=== PATIENT | male | born 1955 | race Caucasian/White ===

== ENCOUNTER 2021-07-25 20:47 | Inpatient (IN) | payer MEDICARE, OTHER ==
[~2021-07-25] VITALS: Ht 167.6 cm; Wt 106.6 kg
[~2021-07-25 20:47] MED LIST: AMIN30LI2 PO; AMLO-213 PO; ATEN25TA PO; ATOR20TA PO; DOXY-326 PO; ESOM40CA PO; GABA-536 PO; LIDO30CR TP; MOME13HF2 IH; NAPR-1009 PO; OMEG500C3 PO; PRED20TA PO; SERT25TA PO; SOLI5TAB2 PO; TEMA15CA PO; TIOT18CA3 IH; ZOLP5TAB2 PO
--- NOTE | 2021-07-25 21:01 | NUR ---
PT AAOX4. BIBRA 60 FROM HOME FOR C/O UPPER ABD PAIN , -N/V, - CP. PLACED IN BED 10 ON RETAIL SALESPERSON AND PULSE OX. AWAITING ER MD FOR EVAL.
--- NOTE | 2021-07-25 21:10 | NUR ---
URINE COLLECTED, SENT TO LAB.
--- NOTE | 2021-07-25 21:28 | NUR ---
IV ESTABLISHED, BLOOD COLLECTED, SENT TO LAB.
--- NOTE | 2021-07-25 21:30 | NUR ---
US AT BEDSIDE
[2021-07-25 21:34] LABS: BILIRUBIN,URINE Negative (NEGATIVE); COLOR,URINE YELLOW (YELLOW); LEUKOCYTE ESTERASE ,URINE Negative (NEGATIVE); NITRITE, URINE Negative (NEGATIVE); PH,URINE 6.5 (5.0-8.0); PROTEIN,URINE >=300 mg/dl (NEGATIVE); UGLUCOSE Negative (NEGATIVE); UROBILINOGEN,URINE 0.2 EU/dL (0.2)
[2021-07-25 21:49] LABS: BACTERIA,URINE Few /HPF (None Seen); SQUAMOUS EPITHELIAL CELL,UR Few /HPF (None Seen); WBC,URINE 0-2 /HPF (0-3)
[2021-07-25 21:53] LABS: BASOPHILS % (AUTO) 0.6 % (0.0-2.0); EOSINOPHILS % (AUTO) 2.1 % (0.0-6.0); HEMATOCRIT 41 % (39-51); HEMOGLOBIN 13.6 g/dL (13.5-17.5); LYMPHOCYTES # (AUTO) 1.7 K/uL (0.8-4.8); LYMPHOCYTES % (AUTO) 27.1 % (20.0-44.0); MEAN CORPUSCULAR HGB CONC 33 g/dl (31.0-36.0); MEAN CORPUSCULAR VOLUME 87 fL (80-96); MONOCYTES # (AUTO) 0.5 K/uL (0.1-1.30); MONOCYTES % (AUTO) 7.5 % (2.0-12.0); NEUTROPHILS # (AUTO) 3.8 K/uL (1.8-8.9); NEUTROPHILS % (AUTO) 62.7 % (43.0-81.0); PLATELET COUNT (AUTO) 148 K/uL (150-450); RED BLOOD CELL COUNT(AUTO) 4.77 MIL/uL (4.5-6.0); WHITE BLOOD COUNT (AUTO) 6.1 K/uL (4.3-11.0)
--- NOTE | 2021-07-25 22:06 | NUR ---
COVID SWAB COLLECTED VIA RECORDS SUPERVISOR AND SENT TO LAB
[2021-07-25] MEDS ORDERED: MORPHINE SULFATE INJ 4 MG/ML DISP.SYRIN ONE (22:07)
[2021-07-25] MEDS ORDERED: ONDANSETRON HCL/PF 4 MG/2 ML VIAL ONE (22:07)
[2021-07-25 22:15] LABS: CALCIUM, SERUM 8.9 mg/dL (8.5-10.1); CARBON DIOXIDE 25 mmol/L (21-32); CHLORIDE 105 mmol/L (98-107); CREATININE 0.7 mg/dL (0.6-1.3); GLUCOSE 165 mg/dL (74-106); POTASSIUM 4.2 mmol/L (3.5-5.1); SODIUM SERUM 140 mmol/L (136-145); UREA NITROGEN, BLOOD 11 mg/dL (7-18)
[2021-07-25 22:20] LABS: ALANINE AMINOTRANSFERASE 74 U/L (12-78); ALBUMIN 3.8 g/dL (3.4-5.0); ALKALINE PHOSPHATASE 52 U/L (46-116); ASPARTATE AMINOTRANSFERASE 22 U/L (15-37); BILIRUBIN,DIRECT 0.1 mg/dL (0.0-0.2); BILIRUBIN,TOTAL 0.3 mg/dL (0.2-1.0); LIPASE 81 U/L (73-393)
[2021-07-25] MEDS ORDERED: MORPHINE SULFATE INJ 2 MG/ML DISP.SYRIN IV PRN (22:30)
[2021-07-25] MEDS ORDERED: DEXTROSE 50%-WATER 50 ML DISP.SYRIN IV PRN (22:30)
[2021-07-25] MEDS ORDERED: ONDANSETRON HCL/PF 4 MG/2 ML VIAL IVP PRN (22:30)
[2021-07-25] MEDS ORDERED: ACETAMINOPHEN 325 MG TABLET PO PRN (22:30)
[2021-07-25] MEDS ORDERED: MAG HYDROX/AL HYDROX/SIMETH 30 ML UDC PO PRN (22:30)
[2021-07-25] MEDS ORDERED: Z GUARD REMEDY 2 OZ OINT TP PRN (22:30)
[2021-07-25] MEDS ORDERED: ONDANSETRON HCL/PF 4 MG/2 ML VIAL IV ONE (22:30)
[2021-07-25] MEDS ORDERED: MAGNESIUM HYDROXIDE 30 ML UDC PO PRN (22:30)
[2021-07-25] MEDS ORDERED: MORPHINE SULFATE INJ 2 MG/ML DISP.SYRIN IV ONE ×2 (22:30→23:00)
[2021-07-25] MEDS ORDERED: HYDROMORPHONE 1 MG/1 ML DISP.SYRIN ONE (22:45)
[2021-07-25] MEDS ORDERED: LIDOCAINE VISCOUS 2% UD 15 ML UDC MM ONE (23:00)
[2021-07-25] MEDS ORDERED: MAG HYDROX/AL HYDROX/SIMETH 30 ML UDC PO ONE (23:00)
[2021-07-25] MEDS ORDERED: HYDROMORPHONE 1 MG/1 ML DISP.SYRIN IV PRN (23:00)
[2021-07-25] MEDS ORDERED: FAMOTIDINE/PF INJ 20 MG/2 ML VIAL IV ONE (23:00)
--- NOTE | 2021-07-26 00:37 | NUR ---
REPORT GIVEN TO RN FOR DAVID.
[2021-07-26 00:51] VITALS: BP 156/87
--- NOTE | 2021-07-26 00:51 | NUR ---
MS RN ADMITTING NOTE PT TRANSPORTED BY [facility] TO UNIT FROM ED AT THIS TIME. RECEIVED REPORT FROM NEHEMIAH BRUCE @ ED, A/OX4. PT ABLE TO COMMUNICATE NEEDS. NO SOB, NO C/O PAIN NOTED AT THIS TIME, NO S/S OF ANY APPARENT DISTRESS NOTED. RESPIRATIONS EVEN AND UNLABORED, ACTIVE BOWEL SOUNDS AUSCULTATED IN ALL FOUR QUADRANTS, ABDOMEN IS NON DISTENDED AND TENDER. SKIN IS INTACT, WARM TO TOUCH, CAPILLARY REFILL < 3 SECS ,PULSES PRESENT BILATERALLY, GOOD CIRCULATION NOTED. IV ACCESS NOTED IN LEFT HAND G # 20, INTACT, PATENT, AND FLUSHING WELL. PT'S BELONGINGS ACCOUNTED FOR, AND KEPT AT PT'S BEDSIDE PER PT REQUEST. ASPIRATION AND SAFETY PRECAUTIONS IN PLACE AND MAINTAINED AT ALL TIMES. BED IN LOWEST, LOCKED POSITION, SIDE RAILS UP X2, TABLE AND CALL LIGHT WITHIN REACH. WILL CONTINUE TO MONITOR.
[2021-07-26] MEDS: HYDROMORPHONE 1 MG/1 ML DISP.SYRIN IV PRN ×5 (03:15→23:59)
[2021-07-26] MEDS: IV NS 0.9% 1,000 ML IV PRN ×3 (03:20→17:21)
[2021-07-26 04:00] VITALS: BP 146/86
[2021-07-26] MEDS: BLOOD SUGAR DIAGNOSTIC 1 EACH STRIP IN SCH ×5 (05:39→22:09)
[2021-07-26] MEDS: INSULIN REGULAR, HUMAN 100 UNIT/ML 3 ML VIAL SQ PRN ×4 (05:53→22:13)
--- NOTE | 2021-07-26 05:53 | NUR ---
BS 200. 3 UNITS OF INSULIN GIVEN PER SLIDING SCALE. WILL CONTINUE TO MONITOR
--- NOTE | 2021-07-26 06:10 | NUR ---
MS RN CLOSING NOTE PT AWAKE IN RESTING IN BED COMFORTABLY AT THIS TIME, STABLE ON 2L OXYGEN VIA NC. PT REMAINED STABLE THROUGHOUT SHIFT. ALL NEEDS, MEDICATIONS, AND CARE ADMINISTERED ANTICIPATED PER ORDER; PAIN CONTROL ADMINISTERED PER ORDER. SAFETY PRECAUTIONS IN PLACE AND MAINTAINED AT ALL TIMES. BED IN LOWEST, LOCKED POSITION, HOB ELEVATED, SIDE RAILS UP X2. CALL LIGHT AND TABLE WITHIN REACH. WILL ENDORSE TO AM SHIFT NURSE FOR DAVID.
[2021-07-26 06:51] LABS: BASOPHILS % (AUTO) 0.1 % (0.0-2.0); HEMATOCRIT 42 % (39-51); HEMOGLOBIN 13.7 g/dL (13.5-17.5); LYMPHOCYTES # (AUTO) 0.6 K/uL (0.8-4.8); LYMPHOCYTES % (AUTO) 6.2 % (20.0-44.0); MEAN CORPUSCULAR HGB CONC 33 g/dl (31.0-36.0); MEAN CORPUSCULAR VOLUME 87 fL (80-96); MONOCYTES # (AUTO) 0.7 K/uL (0.1-1.30); MONOCYTES % (AUTO) 6.6 % (2.0-12.0); NEUTROPHILS # (AUTO) 9.1 K/uL (1.8-8.9); NEUTROPHILS % (AUTO) 87.1 % (43.0-81.0); PLATELET COUNT (AUTO) 138 K/uL (150-450); RED BLOOD CELL COUNT(AUTO) 4.81 MIL/uL (4.5-6.0); WHITE BLOOD COUNT (AUTO) 10.5 K/uL (4.3-11.0)
--- NOTE | 2021-07-26 07:05 | NUR ---
RN OPENING NOTE RECEIVED PATIENT IN BED. A/O X4. SOB NOTED. ON O2 AT 2 LPM VIA NC. NO S/S OF RESPIRATORY DISTRESS. VERBALIZING 5/10 PAIN ON THE UPPER ABDOMEN. IV ACCESS ON L HAND #20 G, NS RUNNING X 75 ML/HR, INTACT AND PATENT. SAFETY MEASURES MAINTAINED. BED IN LOWEST POSITION, BRAKES LOCKED. SIDE RAILS UP X2. CALL LIGHT WITHIN REACH. WILL CONTINUE PLAN OF CARE.
[2021-07-26 07:20] LABS: CALCIUM, SERUM 8.7 mg/dL (8.5-10.1); CREATININE 0.8 mg/dL (0.6-1.3); MAGNESIUM 1.8 mg/dL (1.8-2.4); PHOSPHORUS 3.7 mg/dL (2.5-4.9); POTASSIUM 4.3 mmol/L (3.5-5.1)
[2021-07-26 07:48] LABS: THYROID STIMULATING HORMONE 0.715 uIU/mL (0.358-3.74)
[2021-07-26 08:00] VITALS: BP 135/74
[2021-07-26] MEDS: AMLODIPINE BESYLATE 5 MG TABLET PO SCH (08:09)
[2021-07-26] MEDS ORDERED: PANT40TA49 PO (08:19)
[2021-07-26] MEDS ORDERED: TERA10CA4 PO (08:19)
[2021-07-26] MEDS ORDERED: METO-357 PO (08:19)
[2021-07-26] MEDS ORDERED: ASPI-1420 PO (08:20)
[2021-07-26] MEDS ORDERED: FINA5TAB11 PO (08:20)
[2021-07-26] MEDS ORDERED: OXYB10TA30 PO (08:20)
[2021-07-26] MEDS ORDERED: ROSU10TA29 PO (08:20)
[2021-07-26] MEDS ORDERED: METF-442 PO (08:20)
[2021-07-26] MEDS ORDERED: LORA-259 PO (08:20)
[2021-07-26] MEDS ORDERED: ALBU90AE2 INH (08:20)
[2021-07-26] MEDS ORDERED: ICOS1CAP PO (08:20)
[2021-07-26] MEDS ORDERED: PANTOPRAZOLE 40 MG VIAL IV SCH (09:00)
--- NOTE | 2021-07-26 12:29 | NUR ---
RN NOTE PLACED PT ON NPO FOR NM HIDA SCAN.
[2021-07-26 16:00] VITALS: BP 129/72
--- NOTE | 2021-07-26 18:01 | NUR ---
RN CLOSING NOTE PATIENT RESTING IN BED. A/O X4. AMBULATORY. ON O2 AT 2 LPM VIA NC. IN NO APPARENT DISTRESS. IV ACCESS ON L HAND #20 G, NS RUNNING X 75 ML/HR, INTACT AND PATENT. DUE MEDS GIVEN ORDERED. ALL NEEDS HAVE BEEN MET AND ATTENDED. SAFETY MEASURES MAINTAINED. BED IN LOWEST POSITION, BRAKES LOCKED. SIDE RAILS UP X2. KEPT CALL LIGHT WITHIN REACH. WILL ENDORSE CONTINUITY OF CARE TO ONCOMING SHIFT.
--- NOTE | 2021-07-26 19:45 | NUR ---
RN NOTES PATIENT RESTING IN BED. A/O X4. AMBULATORY. ON O2 AT 2 LPM VIA NC. IN NO APPARENT DISTRESS. IV ACCESS ON L HAND #20 G, NS RUNNING X 75 ML/HR, INTACT AND PATENT. WV REPORTED PAIN 8/10 ON A NUMERIC PAIN SCALE PRN DILAUDID PROVIDED. ALL NEEDS HAVE BEEN MET AND ATTENDED. SAFETY MEASURES MAINTAINED. BED IN LOWEST POSITION, BRAKES LOCKED. SIDE RAILS UP X2. KEPT CALL LIGHT WITHIN REACH. WILL CONTINUE TO MONITOR.
[2021-07-26 20:46] VITALS: BP 145/89
--- NOTE | 2021-07-27 00:38 | NUR ---
RN NOTES PT PRN DILAUDID PROVIDED FOR PAIN 8/10 ON A NUMERIC PAIN SCALE. PT TOLERATED WELL WILL CONTINUE TO MONITOR.
[2021-07-27] MEDS: HYDROMORPHONE 1 MG/1 ML DISP.SYRIN IV PRN ×4 (06:03→20:15)
[2021-07-27] MEDS: INSULIN REGULAR, HUMAN 100 UNIT/ML 3 ML VIAL SQ PRN ×3 (06:30→17:30)
[2021-07-27 06:31] LABS: BASOPHILS % (AUTO) 0.1 % (0.0-2.0); EOSINOPHILS % (AUTO) 0.2 % (0.0-6.0); HEMATOCRIT 38 % (39-51); HEMOGLOBIN 12.5 g/dL (13.5-17.5); LYMPHOCYTES # (AUTO) 0.9 K/uL (0.8-4.8); LYMPHOCYTES % (AUTO) 8.8 % (20.0-44.0); MEAN CORPUSCULAR HGB CONC 33 g/dl (31.0-36.0); MEAN CORPUSCULAR VOLUME 87 fL (80-96); MONOCYTES # (AUTO) 0.8 K/uL (0.1-1.30); MONOCYTES % (AUTO) 8.7 % (2.0-12.0); NEUTROPHILS % (AUTO) 82.2 % (43.0-81.0); PLATELET COUNT (AUTO) 123 K/uL (150-450); RED BLOOD CELL COUNT(AUTO) 4.31 MIL/uL (4.5-6.0); WHITE BLOOD COUNT (AUTO) 9.7 K/uL (4.3-11.0)
[2021-07-27] MEDS: BLOOD SUGAR DIAGNOSTIC 1 EACH STRIP IN SCH ×4 (06:33→21:21)
--- NOTE | 2021-07-27 06:33 | NUR ---
RN NOTES PATIENT RESTING IN BED. A/O X4. AMBULATORY. ON O2 AT 2 LPM VIA NC. IN NO APPARENT DISTRESS. IV ACCESS ON L HAND #20 G, NS RUNNING X 75 ML/HR, INTACT AND PATENT. DUE MEDS GIVEN ORDERED. ALL NEEDS HAVE BEEN MET AND ATTENDED. YI GUADALUPE PROVIDED SAFETY MEASURES MAINTAINED. BED IN LOWEST POSITION, BRAKES LOCKED. SIDE RAILS UP X2. KEPT CALL LIGHT WITHIN REACH. WILL ENDORSE CONTINUITY OF CARE TO ONCOMING SHIFT.
--- NOTE | 2021-07-27 07:30 | NUR ---
MS RN OPENING NOTE RECEIVED PATIENT AWAKE IN BED SLEEP, EASY TO AROUSE. ALERT AND ORIENTED X 4. NO S/S OF DISTRESS NOTED. BREATHING IS EVEN AND UNLABORED. PT ON 3L OF O2 VIA NC. IV ACCESS LHAND#20 PATENT AND INTACT RUNNING NS @75MLS/HR. SAFETY MEASURES MAINTAINED WITH BED LOCKED AT LOW POSITION AND SIDE RAILS UP X2. CALL LIGHT IS WITHIN REACH . WILL CONTINUE TO MONITOR THROUGHOUT SHIFT.
[2021-07-27] MEDS: PANTOPRAZOLE 40 MG TABLET.DR PO SCH (09:02)
[2021-07-27] MEDS: AMLODIPINE BESYLATE 5 MG TABLET PO SCH (09:03)
[2021-07-27 09:26] LABS: ALBUMIN 3.1 g/dL (3.4-5.0); BILIRUBIN,DIRECT 0.2 mg/dL (0.0-0.2); BILIRUBIN,TOTAL 0.7 mg/dL (0.2-1.0); CALCIUM, SERUM 8.4 mg/dL (8.5-10.1); CREATININE 0.7 mg/dL (0.6-1.3); MAGNESIUM 1.7 mg/dL (1.8-2.4); PHOSPHORUS 2.6 mg/dL (2.5-4.9); POTASSIUM 3.7 mmol/L (3.5-5.1); TOTAL PROTEIN, SERUM 7.2 g/dL (6.4-8.2)
[2021-07-27] MEDS: IV NS 0.9% 1,000 ML IV PRN (18:26)
--- NOTE | 2021-07-27 19:24 | NUR ---
MS RN CLOSING NOTES PATIENT IS RESTING IN BED, COMFORTABLY. NO S/S OF DISTRESS NOTED. NO SOB. NO C/O PAIN AT THIS TIME. ALL NEEDS MET THROUGHOUT SHIFT. IV ACCESS PATENT AND INTACT. SAFETY MEASURES MAINTAINED WITH BED LOCKED AT LOW POSITION AND SIDE RAILS UP X 2. CALL LIGHT IS WITHIN REACH. WILL ENDORSE CONTINUITY OF CARE TO ONCOMING SHIFT.
[2021-07-27 20:07] VITALS: BP 126/68
[2021-07-28] MEDS: HYDROMORPHONE 1 MG/1 ML DISP.SYRIN IV PRN ×3 (00:18→19:36)
[2021-07-28] MEDS: BLOOD SUGAR DIAGNOSTIC 1 EACH STRIP IN SCH ×4 (06:24→21:14)
[2021-07-28 06:39] LABS: BASOPHILS % (AUTO) 0.1 % (0.0-2.0); EOSINOPHILS % (AUTO) 0.1 % (0.0-6.0); HEMATOCRIT 39 % (39-51); HEMOGLOBIN 12.8 g/dL (13.5-17.5); LYMPHOCYTES # (AUTO) 0.7 K/uL (0.8-4.8); LYMPHOCYTES % (AUTO) 6.2 % (20.0-44.0); MEAN CORPUSCULAR HGB CONC 33 g/dl (31.0-36.0); MEAN CORPUSCULAR VOLUME 86 fL (80-96); MONOCYTES # (AUTO) 0.9 K/uL (0.1-1.30); MONOCYTES % (AUTO) 8.1 % (2.0-12.0); NEUTROPHILS # (AUTO) 9.8 K/uL (1.8-8.9); NEUTROPHILS % (AUTO) 85.5 % (43.0-81.0); PLATELET COUNT (AUTO) 141 K/uL (150-450); RED BLOOD CELL COUNT(AUTO) 4.54 MIL/uL (4.5-6.0); WHITE BLOOD COUNT (AUTO) 11.5 K/uL (4.3-11.0)
[2021-07-28] MEDS ORDERED: BUPIVACAINE 0.5 % PF 150 MG/30 ML VIAL ONE (06:56)
[2021-07-28] MEDS ORDERED: ANESTHESIA TRAY IN PYXIS 1 EA TRAY MC ONE (06:57)
[2021-07-28] MEDS ORDERED: ROCURONIUM BROMIDE 50 MG/5 ML ONE (07:25)
[2021-07-28] MEDS ORDERED: HYDROMORPHONE INJ 2 MG/ML DISP.SYRIN ONE (07:25)
[2021-07-28] MEDS: PANTOPRAZOLE 40 MG TABLET.DR PO SCH (07:30)
[2021-07-28 07:33] LABS: BILIRUBIN,DIRECT 0.4 mg/dL (0.0-0.2); BILIRUBIN,TOTAL 1.2 mg/dL (0.2-1.0); CALCIUM, SERUM 8.6 mg/dL (8.5-10.1); CREATININE 0.7 mg/dL (0.6-1.3); PHOSPHORUS 1.9 mg/dL (2.5-4.9); POTASSIUM 3.2 mmol/L (3.5-5.1); TOTAL PROTEIN, SERUM 7.6 g/dL (6.4-8.2)
--- NOTE | 2021-07-28 07:40 | NUR ---
MS RN OPENING NOTES PATIENT IS CURRENTLY IN OR AT THIS TIME. WILL CONTINUE WITH PLAN OF CARE AND CARRY OUT NEW ORDERS OBTAINED UPON RETURN.
[2021-07-28] MEDS: AMLODIPINE BESYLATE 5 MG TABLET PO SCH (08:11)
[2021-07-28] MEDS ORDERED: ALBUTEROL FS 2.5 MG/3 ML VIAL.NEB ONE (09:07)
[2021-07-28] MEDS: POTASSIUM CL. PREMIX PERIPHER. 50 ML IV SCH ×4 (10:18→13:02)
--- NOTE | 2021-07-28 10:26 | NUR ---
MS RN NOTE PT RETURNED FROM OR WITH STABLE VITAL SIGNS WITH NEW ORDERS. ORDERS READ BACK AND CARRIED OUT. PT IS RESTING COMFORTABLY WITH CPAP AND CONTINUOUS 02 SAT MONITOR X 24HRS. WILL CONTINUE TO MONITOR PT THROUGHOUT SHIFT.
[2021-07-28] MEDS: INSULIN REGULAR, HUMAN 100 UNIT/ML 3 ML VIAL SQ PRN ×3 (12:13→22:11)
--- NOTE | 2021-07-28 12:30 | NUR ---
PT. POST OP REC. @1000 PLACED ON CPAP PER OR MD ORDER FOR COMFORT OF SLEEPING, HE IS ALWAYS USING HIS HOME CPAP WHILE HE IS SLEEPING (CPAP TEL. ORDER CONFIRMED)ALSO MD HAND WRITTEN ORDER ON PACU NOTE PAGE ON PT. FILE. RN AT THE BEDSIDE. AND0 PT.AWAKE AND EDUCATED WILL SLEEP WITH CPAP ON, CONTINUES PULSE -OX AT THE BEDSIDE. PT. STABLE @1230 CPAP OFF PLACED ON 3 L.MIN N/C CONTINUE TO MONITOR. REPORT WILL BE GIVEN TO SEED PELLETER. FOR NIGHT CPAP. Addendum: 07/28/21 at 1432 by KISHAN CHRIS RT Amended: Links added.
[2021-07-28] MEDS ORDERED: Sodium Phosphate 15 MMOL in IV NS 0.9% 245 ML IV SCH (13:00)
--- NOTE | 2021-07-28 19:36 | NUR ---
ADMINISTERED DILAUDID FOR PAIN, PER MD ORDER. VITAL SIGNS WNL. WILL CONTINUE TO MONITOR.
[2021-07-28 20:00] VITALS: BP 155/83
[2021-07-28] MEDS: TEMAZEPAM 15 MG CAPSULE PO PRN (20:52)
--- NOTE | 2021-07-28 22:13 | NUR ---
PT REFUSED SNACK AFTER INSULIN SO DID NOT ADMINISTER INSULIN.
--- NOTE | 2021-07-28 22:34 | NUR ---
MS RN OPENING NOTES RECEIVED PATIENT IN BED, WATCHING TV @1930. PT IS AOx4. ABLE TO MAKE NEEDS KNOWN. ON 3 L/MIN NASAL CANNULA AND TOLERATING WELL. NO SOB NOTED. NO S/SX OF RESPIRATORY DISTRESS NOTED. IV ACCESS IN L HAND #20G RUNNING NS @ 75 ML/HR. COMPLAINED OF 8/10 PAIN AT THIS TIME. SAFETY PRECAUTIONS IN PLACE: BED IN LOWEST, LOCKED POSITION, BRAKES ON, SIDERAILS UPx2. CALL LIGHT AND TABLE WITHIN REACH. WILL CONTINUE TO MONITOR.
[2021-07-29] MEDS: HYDROMORPHONE 1 MG/1 ML DISP.SYRIN IV PRN (05:14)
--- NOTE | 2021-07-29 05:14 | NUR ---
ADMINISTERED DILAUDID FOR PAIN, PER MD ORDER. VITAL SIGNS WNL. WILL CONTINUE TO MONITOR.
[2021-07-29] MEDS: BLOOD SUGAR DIAGNOSTIC 1 EACH STRIP IN SCH ×4 (06:14→21:23)
[2021-07-29] MEDS: INSULIN REGULAR, HUMAN 100 UNIT/ML 3 ML VIAL SQ PRN (06:14)
--- NOTE | 2021-07-29 06:16 | NUR ---
DID NOT ADMINISTER INSULIN, PER SLIDING SCALE.
--- NOTE | 2021-07-29 06:45 | NUR ---
MS RN CLOSING NOTES PATIENT IN BED, AWAKE. PT IS AOx4. ABLE TO MAKE NEEDS KNOWN. ON 3 L/MIN NASAL CANNULA AND TOLERATING WELL. NO SOB NOTED. NO S/SX OF RESPIRATORY DISTRESS NOTED. IV ACCESS IN L HAND #20G RUNNING NS @ 75 ML/HR. TREATED PAIN THROUGHOUT SHIFT. ALL NEEDS MET. PT KEPT CLEAN AND DRY. REMOVED 35 ML OF SANGUINEOUS DRAINAGE FROM ABRAHAM DRAIN. SAFETY PRECAUTIONS IN PLACE: BED IN LOWEST, LOCKED POSITION, BRAKES ON, SIDERAILS UPx2. CALL LIGHT AND TABLE WITHIN REACH. WILL ENDORSE TO ONCOMING SHIFT.
[2021-07-29 07:00] LABS: BASOPHILS % (AUTO) 0.2 % (0.0-2.0); EOSINOPHILS % (AUTO) 0.1 % (0.0-6.0); HEMATOCRIT 36 % (39-51); HEMOGLOBIN 11.9 g/dL (13.5-17.5); LYMPHOCYTES # (AUTO) 0.8 K/uL (0.8-4.8); LYMPHOCYTES % (AUTO) 9.9 % (20.0-44.0); MEAN CORPUSCULAR HGB CONC 33 g/dl (31.0-36.0); MEAN CORPUSCULAR VOLUME 86 fL (80-96); MONOCYTES # (AUTO) 0.7 K/uL (0.1-1.30); MONOCYTES % (AUTO) 8.6 % (2.0-12.0); NEUTROPHILS # (AUTO) 6.9 K/uL (1.8-8.9); NEUTROPHILS % (AUTO) 81.2 % (43.0-81.0); PLATELET COUNT (AUTO) 150 K/uL (150-450); RED BLOOD CELL COUNT(AUTO) 4.17 MIL/uL (4.5-6.0); WHITE BLOOD COUNT (AUTO) 8.5 K/uL (4.3-11.0)
--- NOTE | 2021-07-29 07:30 | NUR ---
MS RN OPENING NOTE RECEIVED PATIENT AWAKE IN BED. ALERT AND ORIENTED X 4. NO S/S OF DISTRESS NOTED. PT ON 3L OF O2 VIA NC WITH CPAP PRN AT BEDSIDE. IV ACCESS LHAND#20 PATENT AND INTACT. PT WITH ABRAHAM DRAIN NOTED WITH SANGENOUS FLUID. SAFETY MEASURES MAINTAINED WITH BED LOCKED AT LOW POSITION AND SIDE RAILS UP X2. CALL LIGHT IS WITHIN REACH . WILL CONTINUE TO MONITOR THROUGHOUT SHIFT.
[2021-07-29 07:58] LABS: CALCIUM, SERUM 8.8 mg/dL (8.5-10.1); CREATININE 0.6 mg/dL (0.6-1.3); PHOSPHORUS 3.2 mg/dL (2.5-4.9)
[2021-07-29] MEDS: PANTOPRAZOLE 40 MG TABLET.DR PO SCH (08:27)
[2021-07-29 08:35] VITALS: BP 155/100
[2021-07-29] MEDS: AMLODIPINE BESYLATE 5 MG TABLET PO SCH (08:51)
[2021-07-29 09:54] LABS: ALBUMIN 2.8 g/dL (3.4-5.0); BILIRUBIN,DIRECT 0.2 mg/dL (0.0-0.2); BILIRUBIN,TOTAL 0.5 mg/dL (0.2-1.0); TOTAL PROTEIN, SERUM 7.5 g/dL (6.4-8.2)
--- NOTE | 2021-07-29 15:50 | NUR ---
MS RN NOTE PT REMOVED IV ACCESS RHAND#20 ACCIDENTALLY WHILE TURNING, DECLINE RE-INSERTION AT THIS TIME. WILL ATTEMPT AT LATER TIME.
[2021-07-29 16:22] VITALS: BP 148/88
--- NOTE | 2021-07-29 18:31 | NUR ---
MS RN CLOSING NOTES PATIENT IS RESTING IN BED, COMFORTABLY. NO S/S OF DISTRESS NOTED. NO SOB. NO C/O PAIN AT THIS TIME. ALL NEEDS MET THROUGHOUT SHIFT. PT WITH CPAP AT BEDSIDE PRN AND AT BEDTIME. SAFETY MEASURES MAINTAINED WITH BED LOCKED AT LOW POSITION AND SIDE RAILS UP X 2. CALL LIGHT IS WITHIN REACH. WILL ENDORSE CONTINUITY OF CARE TO ONCOMING SHIFT.
--- NOTE | 2021-07-29 19:55 | NUR ---
MS RN OPENING NOTEs Patient is A&Ox4. Denies pain or discomfort at this time. Able to make needs known emptied 7cc of sanguineous output from ABRAHAM drain. Patient is still refusing IVF x3 educated on risks and benefits. L hand #20G patent and flushed. no s/s of hypo or hyperglycemia at this time. Reminded patient to call when he wants his CPAP on for the night.
[2021-07-29 20:00] VITALS: BP 157/95
[2021-07-29] MEDS: TEMAZEPAM 15 MG CAPSULE PO PRN (21:55)
--- NOTE | 2021-07-29 21:57 | NUR ---
Pt reports wanting a sleeping pill for a good night's sleep and wants his CPAP on. called RT. Patient still denies any pain.
--- NOTE | 2021-07-30 03:12 | NUR ---
RT Pt placed on CPAP per MD orders after 20:00, Pt refused to have pulse ox connected. CPAP plugged into red outlet with alarms on and audible. CPAP chase well. Pt requested to be removed from CPAP approx 01:25, pt placed on 3 lpm NC. No SOB or respiratory distress, no skin redness or breakdown from mask noted. RN informed.
--- NOTE | 2021-07-30 06:45 | NUR ---
Patient has been A&Ox4. Slept 4 hours patient states he was too excited to go home to sleep any longer. 25cc serosanguineous output to ABRAHAM drain. BS WNL. no hypo or hyperglycemic reactions. motivated to use incentive spirometer while awake. Denies SOB. Denies any pain overnight.
[2021-07-30] MEDS: BLOOD SUGAR DIAGNOSTIC 1 EACH STRIP IN SCH (06:58)
[2021-07-30 07:16] LABS: BASOPHILS % (AUTO) 0.3 % (0.0-2.0); HEMATOCRIT 37 % (39-51); HEMOGLOBIN 12.2 g/dL (13.5-17.5); MEAN CORPUSCULAR HGB CONC 33 g/dl (31.0-36.0); MEAN CORPUSCULAR VOLUME 86 fL (80-96); MONOCYTES # (AUTO) 0.7 K/uL (0.1-1.30); MONOCYTES % (AUTO) 10.6 % (2.0-12.0); NEUTROPHILS # (AUTO) 4.5 K/uL (1.8-8.9); NEUTROPHILS % (AUTO) 71.1 % (43.0-81.0); PLATELET COUNT (AUTO) 169 K/uL (150-450); RED BLOOD CELL COUNT(AUTO) 4.27 MIL/uL (4.5-6.0); WHITE BLOOD COUNT (AUTO) 6.3 K/uL (4.3-11.0)
--- NOTE | 2021-07-30 07:20 | NUR ---
MS RN OPENING NOTE RECEIVED PATIENT AWAKE IN BED. ALERT AND ORIENTED X 4. NO S/S OF DISTRESS NOTED. ON 3LPM OF O2 VIA NC. IV ACCESS ON LHAND#20G PATENT AND INTACT. NO SIGNS OR SYMPTOMS OF INFILTRATION NOTED. PT WITH ABRAHAM DRAIN NOTED WITH SANGENOUS OUTPUT. SAFETY MEASURES MAINTAINED WITH BED LOCKED AT LOW POSITION AND SIDE RAILS UP X2. CALL LIGHT PLACED WITHIN EASY REACH . WILL CONTINUE TO MONITOR THROUGHOUT SHIFT.
[2021-07-30 07:41] LABS: ALBUMIN 2.7 g/dL (3.4-5.0); BILIRUBIN,DIRECT 0.1 mg/dL (0.0-0.2); BILIRUBIN,TOTAL 0.5 mg/dL (0.2-1.0); CALCIUM, SERUM 8.2 mg/dL (8.5-10.1); CREATININE 0.7 mg/dL (0.6-1.3); POTASSIUM 3.4 mmol/L (3.5-5.1); TOTAL PROTEIN, SERUM 7.2 g/dL (6.4-8.2)
[2021-07-30] MEDS: PANTOPRAZOLE 40 MG TABLET.DR PO SCH (08:10)
[2021-07-30] MEDS: AMLODIPINE BESYLATE 5 MG TABLET PO SCH (08:10)
[2021-07-30 08:39] VITALS: BP 114/60
--- NOTE | 2021-07-30 08:50 | NUR ---
RN NOTES PATIENT SEEN BY DR. HAJI TODAY; OK TO DISCHARGE IF CLEARED BY SURGERY.
[2021-07-30] MEDS ORDERED: POTASSIUM CHLORIDE 20 MEQ TAB.PRT.SR PO SCH (09:30)
--- NOTE | 2021-07-30 10:07 | NUR ---
RN NOTES PATIENT SEEN BY DR. SNOW, REMOVED ABRAHAM DRAIN, OUTPUT OF 20CC OBTAINED. SITE REINFORCED W/ DRESSING AND TAPE, NO ACTIVE BLEEDING NOTED. OK TO D/C FROM SURGERY PERSPECTIVE.
--- NOTE | 2021-07-30 11:00 | NUR ---
NEHEMIAH NOTES SPOKE W/ PRINCESS RODRIGUEZ; PER PRINCESS, JULIETA MANUELTAMANNA, SISTER, WILL BE THE POINT OF CONTACT FOR PATIENT. Addendum: 07/30/21 at 1146 by MARGIE MARROQUIN RN INCORRECT DOCUMENTATION
--- NOTE | 2021-07-30 11:15 | NUR ---
NEHEMIAH NOTES PATIENT SEEN BY OCCUPATIONAL THERAPIST AT BEDSIDE. Addendum: 07/30/21 at 1146 by MARGIE MARROQUIN RN INCORRECT DOCUMENTATION
--- NOTE | 2021-07-30 12:16 | NUR ---
CLASSIFIED ADVERTISING MANAGER NOTES PATIENT SEEN BY DR. RAISSA SNOW, CLEARED FOR DISCHARGE TODAY. DISCHARGE INSTRUCTION AND EDUCATION PROVIDED TO PATIENT, VERBALIZED UNDERSTANDING ON POST-OP PLAN OF CARE. DISCHARGE FORM AND BELONGINGS LIST FORM SIGNED BY PATIENT AND ALL BELONGINGS ACCOUNTED FOR. IV LINE AND NAME ARMBAND REMOVED. NO SKIN ISSUES NOTED. INCISION SITES W/ DRESSING DRY AND INTACT, NO BLEEDING NOTED. PATIENT WAS ACCOMPANIED TO THE LOBBY BY ME AND ANOTHER RN MEMO; PATIENT ABLE TO AMBULATE W/ STEADY GAIT. PICKED UP BY VIA PRIVATE CAR. CHARGE NURSE AND MD AWARE OF DISCHARGE.
== END 2021-07-30 13:15 | disposition home or self-care (01) | DRG 418 ==
LOC: ER 20:50 → MED 07-26 00:45
PROVIDERS: ADMIT Nurse Practitioner Acute Care; ATTEND Internal Medicine
PROC: 0FT44ZZ Resection of Gallbladder, Percutaneous Endoscopic Approach (ICD-10-PCS; principal; 2021-07-28)
DX: K81.0 Acute cholecystitis (principal); J98.11 Atelectasis; E11.9 Type 2 diabetes mellitus without complications; K21.9 Gastro-esophageal reflux disease without esophagitis; J44.9 Chronic obstructive pulmonary disease, unspecified; N40.0 Benign prostatic hyperplasia without lower urinary tract symptoms; Z87.891 Personal history of nicotine dependence; I10 Essential (primary) hypertension; E66.01 Morbid (severe) obesity due to excess calories; Z68.35 Body mass index [BMI] 35.0-35.9, adult; Z20.822 Contact with and (suspected) exposure to COVID-19; Z85.118 Personal history of other malignant neoplasm of bronchus and lung; Z90.2 Acquired absence of lung [part of]; Z79.51 Long term (current) use of inhaled steroids; Z79.899 Other long term (current) drug therapy; E78.5 Hyperlipidemia, unspecified; Z90.49 Acquired absence of other specified parts of digestive tract; Z68.37 Body mass index [BMI] 37.0-37.9, adult; E66.9 Obesity, unspecified; K82.8 Other specified diseases of gallbladder; M19.90 Unspecified osteoarthritis, unspecified site; K76.0 Fatty (change of) liver, not elsewhere classified; K57.90 Diverticulosis of intestine, part unspecified, without perforation or abscess without bleeding; K29.70 Gastritis, unspecified, without bleeding; F41.9 Anxiety disorder, unspecified; K76.89 Other specified diseases of liver; F32.A Depression, unspecified; K66.0 Peritoneal adhesions (postprocedural) (postinfection)
CPT/HCPCS: 36415; 71045-TC; 76705-TC; 78226; 80048-TC; 80061-TC; 80076-TC; 81001; 82962-TC; 83690-TC; 83735-TC; 84100-TC; 84443-TC; 84484-TC; 85025-TC; 87070-TC; 87075-TC; 87081-TC; 87186-TC; 88304-TC; 94760-TC; 94799-TC; A9537; A9563; C9113; C9803; G0378; J0330; J0690; J1100; J1170; J1815; J1885; J2270; J2405; J2704; J3480; J3490; J7030; J7050